=== PATIENT | female | born 1960 | race Caucasian/White ===

== ENCOUNTER → 2022-12-23 10:02 | Outpatient (BNVA) | payer BC, SELFPAY | PROVIDERS: PCP Family Medicine; Visit Provider Nurse Practitioner Family | DX: Z13.89 Encounter for screening for other disorder (principal) ==

== ENCOUNTER 2023-12-25 08:53 | Outpatient (AMB) | payer BC, SELFPAY ==
--- NOTE | 2023-12-25 08:55 | A.OFFVIS_ITS ---
Intake Vital Signs 12/25/23 08:58 Height 5 ft 5 in Weight 199 lb 8 oz BMI 33.2 BP 122/68 Blood Pressure Location Lt brachial Position Sitting Pulse 60 Pulse Source Pulse Oximeter Pulse Oximetry (%) 98 Oxygen Delivery Method Room Air Intake Visit Reasons: 1yr f/u PEARL - LVM w/address Press Operator Carbon Products Required: No Accompanied by: Self / Same As Patient Allergies amoxicillin Adverse Reaction (Intermediate, Verified 12/23/22 10:10) Rash HPI HPI Comments History of Present Illness Details 63 y/o female patient presents for follo w up of PEARL on CPAP. Pt reports she had really bad allergy, could not using CPAP during the winter. Her allergy symptoms usually worse from fall to winter. She started using Flonase, and it helps to reduce her sneezing and drying out. She also gets supplies routinely. Pt states that she feels good, sleeps well and wakes up refreshed when using CPAP. The CPAP compliance and therapy response (09/26/23-12/24/23) reviewed. She is on APAP [id number]. Usages days 37% and average usage hours 7 hours and 30 min. The max pressure is 12 and AHI was 6. [facility] Medical History (Updated 12/23/22 @ 11:41 by Dale Tanner CNP) FH: cholecystectomy Surgical History (Updated 12/23/22 @ 10:11 by Natalie Steward CMA) Previous back surgery Social History (Updated 12/18/22 @ 09:16 by Natalie Steward CMA) Alcohol intake: current Alcohol intake frequency: a few times a month Patient Tobacco Use Status: Former Tobacco user Review of Systems Const All systems reviewed & are unremarkable except as noted in HPI and below ENT Reports Normal hearing present Neuro Reports Normal hearing present Physical Exam Vital Signs: Last Vital Signs Pulse 60 12/25/23 08:58 BP 122/68 12/25/23 08:58 Pulse Ox 98 12/25/23 08:58 Oxygen Delivery Method Room Air 12/25/23 08:58 BMI result Body Mass Index 33.2 Const General: cooperative and comfortable Nutritional Appearance: obese Orientation/consciousness: patient oriented x3 Neck Neck: Yes full ROM and Yes supple Resp Effort & Inspection: normal respiratory effort and able to speak in complete sentences Neuro General: patient oriented x3 Cranial nerves: Yes Bilaterally intact EOM present, Yes Normal facial strength present, Yes Midline tongue present, Yes Symmetric palate elevation present, Yes Normal hearing present, Yes Ability to bilaterally rotate head present and Yes Ability to bilaterally elevate shoulders present Cognition (Neuro): normal cognition Gait exam (Neuro): Normal gait present Motor exam (neuro): 5/5 motor strength present throughout, Pronator motor function not present and no tremor noted Psych Appearance: grossly normal Mental Status: mental status grossly normal Speech and movement: Normal speech and movement present Affect: normal affect Attitude: cooperative Assessment & Plan Assessment & Plan (1) PEARL on CPAP: Code(s): G47.33 - Obstructive sleep apnea (adult) (pediatric); Z99.89 - Dependence on other enabling machines and devices Plan Advised patient to continue to use APAP [id number]. Stressed compliance, use CPAP nightly and more than 4 hours. Wt reduction adivsed. Coding Level of Care Code Est Pt Level 3 (67349) Diagnoses PEARL on CPAP G47.33; Z99.89
[2023-12-25 08:58] VITALS: BP 122/68; PULSE 60; O2SAT 98; BMI 33.2
== END 2023-12-25 09:18 | disposition home or self-care (01) ==
PROVIDERS: Visit Provider Nurse Practitioner Family
DX: G47.33 Obstructive sleep apnea (adult) (pediatric) (principal); Z99.89 Dependence on other enabling machines and devices
CPT/HCPCS: 99213

== ENCOUNTER → 2023-12-25 08:53 | Outpatient (BNVA) | payer BC, SELFPAY | PROVIDERS: Visit Provider Nurse Practitioner Family ==

== ENCOUNTER 2024-12-24 09:38 | Outpatient (AMB) | payer BC, SELFPAY ==
--- NOTE | 2024-12-24 09:40 | MHC.OFFVIS ---
Vital Signs 12/24/24 09:42 Height 5 ft 5 in Weight 187 lb BMI 31.1 BP 126/78 Blood Pressure Location Rt brachial Position Sitting Pulse 66 Pulse Source Pulse Oximeter Pulse Oximetry (%) 97 Oxygen Delivery Method Room Air Intake Visit Reasons: follow up PEARL Intake Note: Patient presents follow up PEARL. compliance 07/09/24 available Allergies amoxicillin Adverse Reaction (Intermediate, Verified 12/24/24 09:43) Rash HPI Comments Details: 63 y/o female patient presents for follow up of PEARL on CPAP. Pt reports she had really bad allergies, sneezing all day long, could not use CPAP during NOV, she is making a wheezing, musical sound, and her small business representative gave her Azithtromycin and Cetirizine and Wixela inhaler. Her allergy symptoms usually progress from fall to winter. She started using Flonase for rhinorrea dries out her nasal passageway and she is not able to use the CPAP. She has been having trouble with [employer], getting supplies and has multiple URIs. She thinks it is the mask, and tubing which keeps her up at night, coughing and choking. 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 Denies RLS, has numbness and tingling in the l. leg due to herniated disc, L5/S1, surgery at [facility]. Cholecystectomy in 2019 Labs with [facility] 2x a year for hypothyroidism. Her mood, diet and memory is normal, anxiety is well managed with paroxetine 20mg PO at bedtime. [facility] Medical History FH: cholecystectomy Surgical History Previous back surgery Social History Alcohol intake: current Alcohol intake frequency: a few times a month Patient Tobacco Use Status: Former Tobacco user Physical Exam Vital Signs: Last Vital Signs Pulse 66 12/24/24 09:42 BP 126/78 12/24/24 09:42 Pulse Ox 97 12/24/24 09:42 Oxygen Delivery Method Room Air 12/24/24 09:42 BMI result Body Mass Index 31.1 Const General: cooperative, no acute distress and tired appearing Orientation/consciousness: patient oriented x3 HEENT Face and sinus: Yes normal facial exam and Yes face symmetric Throat: Yes other (Mallampti score 3 ) Eyes Pupils: Equal, round and reactive pupils present Neck Neck: Yes full ROM Resp Effort & Inspection: normal respiratory effort, able to speak in complete sentences and Actively coughing Neuro General: patient oriented x3 Cranial nerves: Yes CN's II-XII intact bilaterally, Yes Equal, round and reactive pupils present, Yes Normal accommodation reflex present, Yes Bilaterally intact EOM present, Yes Nystagmus not present, Yes Normal facial strength present, Yes Midline tongue present, Yes Ability to bilaterally rotate head present and Yes Ability to bilaterally elevate shoulders present Gait exam (Neuro): Normal gait present Motor exam (neuro): 5/5 motor strength present throughout and Normal motor muscle tone present throughout Deep tendon reflexes (DTR's): Right triceps reflex intensity grade: 2+, Left triceps reflex intensity grade: 2+, Rt Biceps (C5, C6): 2+, Left biceps reflex intensity grade: 2+, Right brachioradialis reflex intensity grade: 2+, Left brachioradialis reflex intensity grade: 2+, Right patellar reflex intensity grade: 2+ and Left patellar reflex intensity grade: 2+ Psych Appearance: grossly normal Thought process: Normal thought process present Thought content: Normal thought content present Results Reviewed Results Reviewed: The CPAP compliance and therapy response (09/26/23-12/24/23) reviewed. She is on APAP [id number]. Usages days 37% and average usage hours 7 hours and 30 min. The max pressure is 12 and AHI was 6. PEARL Compliance Report HST : 04/2024- 07/2024 >4 hrs use 83 days and 92% Avg. 7hrs 55min APAP [id number] Press 0.1-11.7cmH20 EPR 3 AHI 3.8 Assessment & Plan Assessment & Plan (1) Environmental allergies: Code(s): Z91.09 - Other allergy status, other than to drugs and biological substances Category: Medical (2) Rhinorrhea: Code(s): J34.89 - Other specified disorders of nose and nasal sinuses Category: Medical (3) Wheeze clears with coughing: Code(s): R05.9 - Cough, unspecified; R06.2 - Wheezing Category: Medical (4) Asthma: Code(s): J45.909 - Unspecified asthma, uncomplicated Category: Medical Qualifiers: Asthma severity: unspecified severity Asthma persistence: intermittent Asthma complication type: unspecified Qualified Code(s): J45.20 - Mild intermittent asthma, uncomplicated Plan HST re-evaluation for sleep apnea Fatigue f/u with labs from [facility] Numbness and pain L>R Lumbar Radiculopathy L5/S1 Orders: Orders RT home sleep study Today G47.19 - Other hypersomnia Patient Instructions: Sleep Hygiene provided: set a scheduled bedtime and wake time to help regulate the circadian rhythm and balance the release of pituitary hormones. Sleep in a dark room, temperatures below 68 degrees, and no devices n bed. Limit caffeinated products 6 hours prior to bed, and limit fluids 2-4 hours prior to bed. Gentle night yoga, diffusing essential oils, and playing soft music can be relaxing. - mask and supply will be ordered once sleep study is completed. - Labs requested from [facility] - Surgical note for Lumbar Radiculopathy. Coding Level of Care Code Est Pt Level 4 (27821) Diagnoses Environmental allergies Z91.09 Rhinorrhea J34.89 Wheeze clears with coughing R05.9; R06.2 Intermittent asthma, unspecified asthma severity, unspecified whether complicated J45.20 Asthma severity: unspecified severity Asthma persistence: intermittent Asthma complication type: unspecified Time Spent (min) 30 Comment Evaluation of sleep
[2024-12-24 09:42] VITALS: BP 126/78; PULSE 66; O2SAT 97; BMI 31.1
== END 2024-12-24 10:25 | disposition home or self-care (01) ==
LOC: HO.HSMS 09:39
PROVIDERS: PCP Family Medicine; Visit Provider Physician Assistant Medical
DX: J30.2 Other seasonal allergic rhinitis (principal); J34.89 Other specified disorders of nose and nasal sinuses; R05.9 Cough, unspecified; R06.2 Wheezing; J45.20 Mild intermittent asthma, uncomplicated
CPT/HCPCS: 99214

== ENCOUNTER → 2024-12-24 09:38 | Outpatient (BNVA) | payer BC, SELFPAY | PROVIDERS: PCP Family Medicine; Visit Provider Physician Assistant Medical ==

== ENCOUNTER → 2025-02-21 08:51 | Outpatient (REF) | payer BC, SELFPAY ==
--- OUTSIDE RECORDS SUMMARY | 2025-02-21 08:59 | XMS_ITS | Encounter Summary ---
Author Organization [facility] Address [address] [facility] [facility] [facility] [address] [place] [address] Phone Care Team Providers Care Product Control And Logistics Analyst Name Role Phone Jaime Riley DO Primary Care Provider [phone] Encounter Details Date Type Department Care Team (Late st Contact Info) Description 04/04/2021 Orders Only [facility] [address] [facility] [address] [place] [address] Provider, MD Inder [address] [place], [place] [id number] Social History Tobacco Use Types Packs/Day Years Used Date Smoking Tobacco: Never Alcohol Use Standard Drinks/Week Comments Yes 0 (1 standard drink = 0.6 oz pure alcohol) Alcoholic Drinks/day: Occasional social drink Comments Unknown Sex and Gender Information Value Date Recorded Sex Assigned at Not on file Legal Sex Female 5:12 PM EST Gender Identity Not on file Sexual Orientation Not on file documented as of this encounter Plan of Treatment Not on file documented as of this encounter Procedures Procedure Name Priority Date/Time Associated Diagnosis Comments EXT RESULT ENTRY Routine 01/04/2021 documented in this encounter Results * EXT RESULT ENTRY (01/04/2021) Historical Provider LAB BLOOD ORDERABLES Yolanda l Result documented in this encounter Visit Diagnoses Not on filedocumented in this encounter Care Teams Product Control And Logistics Analyst Relationship Specialty Start Date End Date Jaime Riley DO [address] [place] [address] PCP - General 10/16/20 documented as of this encounter
--- OUTSIDE RECORDS SUMMARY | 2025-02-21 08:59 | XMS_ITS | Clinical Summary ---
Author Organization [facility] Address [address] [address] Care Team Providers Care Highway Engineering Technician Name Role Phone Riley, Gary Juanita GREGG Primary Care Provider [phone] Allergies Active Allergy Reactions Criticality Noted Date Comments Amoxicillin Other (see comments) 04/05/2021 Medications levothyroxine (SYNTHROID, LEVOTHROID) 125 MCG tablet Take 125 mcg by mouth 1 (one) time each day 03/08/2021 Active PARoxetine (PAXIL) 20 MG tablet Take 20 mg by mouth 1 (one) time each day 02/06/2021 Active lisinopril 10 MG tablet TAKE 1 TABLET BY MOUTH ONCE DAILY 30 tablet 11 11/11/2022 Active amLODIPine (NORVASC) 10 MG tablet TAKE 1 TABLET BY MOUTH EVERY MORNING 30 tablet 11 02/26/2023 Active Active Problems Problem Noted Date Diagnosed Date 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 06/13/2022 Anemia 06/13/2022 Essential (primary) hypertension 04/05/2021 Chronic kidney disease, Stage I 04/05/2021 Hypothyroidism 10/15/2020 Resolved Problems Problem Noted Date Diagnosed Date Resolved Date Polyp of gallbladder 06/13/2022 022 Macrocytosis 06/13/2022 06/13/2022 Inflammation of sacroiliac joint 06/13/2022 06/13/2022 Graves' disease 06/13/2022 06/13/2022 Diverticular disease 06/13/2022 022 Anxiety 10/15/2020 06/13/2022 Family History Medical History Relation Comments Dementia Mother Heart disease Mother A-Fib Hypertension Mother Hypertension Sibling sister Relation Status Comments Father Alive Mother Alive Sibling Social History Tobacco Use Types Packs/Day Years Used Date Smoking Tobacco: Never Smokeless Tobacco: Never Tobacco Cessation:Counseling Given: Not Answered Alcohol Use Standard Drinks/Week Comments Yes 0 (1 standard drink = 0.6 oz pure alcohol) Alcoholic Drinks/day: Occasional social drink Comments Unknown Sex and Gender Information Value Date Recorded Sex Assigned at Not on file Legal Sex Female 5:12 PM EST Gender Identity Not on file Sexual Orientation Not on file Last Filed Vital Signs Vital Sign Reading Time Taken Comments Blood Pressure 136/80 06/17/2022 4:35 PM EDT Pulse 72 06/17/2022 4:35 PM EDT Temperature - - Respiratory Rate - - Oxygen Saturation 97% 06/17/2022 4:35 PM EDT Inhaled Oxygen Concentration - - Weight 92.1 kg (203 lb) 06/17/2022 4:35 PM EDT Height 165.1 cm (5' 5 ) 04/05/2021 3:08 PM EDT Body Mass Index 33.78 04/05/2021 3:08 PM EDT Plan of Treatment Health Maintenance Due Date Last Done Comments Breast Cancer Screening 1961 Pneumococcal Vaccine: 50+ Ye ars (1 of 2 - PCV) 1980 Colorectal Cancer Screening: Annual FOBT 2010 Colorectal Cancer Screening: Colonoscopy 2010 Colorectal Cancer Screening: Sigmoidoscopy 2010 Influenza Vaccine (Season Ended) 2025 Hepatitis B Vaccine Aged Out No longe r eligible based on patient's age to complete this topic Insurance [facility] Care Teams Highway Engineering Technician Relationship Specialty Start Date End Date Jaime Riley DO [address] [place] [address] PCP - General 10/16/20
== END ==
LOC: HO.SL 08:51
PROVIDERS: PCP Family Medicine; Visit Provider Physician Assistant Medical
DX: G47.19 Other hypersomnia (principal)
CPT/HCPCS: 95806

== ENCOUNTER → 2025-02-21 09:06 | Outpatient (BNV) | payer BC, SELFPAY | PROVIDERS: PCP Family Medicine; Visit Provider Psychiatry & Neurology Neurology | DX: R06.83 Snoring (principal) | CPT/HCPCS: 95806 ==

== ENCOUNTER 2025-03-24 10:35 | Outpatient (AMB) | payer BC, SELFPAY ==
[2025-03-24 10:38] VITALS: BP 126/88; PULSE 70; O2SAT 96; BMI 31.8
--- NOTE | 2025-03-24 10:38 | MHC.OFFVIS ---
Vital Signs 03/24/25 10:38 Height 5 ft 5 in Weight 191 lb 2 oz BMI 31.8 BP 126/88 Blood Pressure Location Lt brachial Position Sitting Pulse 70 Pulse Source Pulse Oximeter Pulse Oximetry (%) 96 Oxygen Delivery Method Room Air Intake Visit Reasons: 3 mnts f/u Intake Note: Patient presents follow up Sleep. HST done 02/22 in chart(AHI-3, JEFF-85%). Allergies amoxicillin Adverse Reaction (Intermediate, Verified 03/24/25 10:42) Rash HPI Comments Details: 64 y/o female patient presents for follow up of PEARL on CPAP. February 2025 and AHI 3 and Oxygen desaturation Jeff 85%, [facility] and pay out of pocket to continue her cpap use and compliance. She has visited acute care twice this month for URI. Pt reports she has chronic allergies, sneezing, rhinorrhea, could not use CPAP during NOV. She makes a wheezing, musical sound when sleeping and wakes up coughing. Her Ornamental Iron Erector rx Azithromycin and Ceterizine, along with Wixela prn. Her allergy symptoms usually progress from fall to winter then decrease in the spring. Now she has congestion of the l. nare as she lays on her r. side. She tried flonase, and saline sprays, soledad pots, however still unable to get a full breath of air in. She continues to wake up at night several times, uses a fan and opens windows for air. She has been having trouble with her sleep company, and having to use her mask and tubing after bronchitis, twice this month. She cares for her ill mother who has Alzheimers and is now in a nursing facility. She deneis RLS, however has some numbness and tingling in l. leg due to h/o surgery for herniated disc at L5/S1 at [facility]. She continues to have low back pain and radiating electric shock down the l. leg. She has + h/o graves disease and ablation. Her mood tends to be very anxious and she gets panic attacks managed with paroxetine 20mg PO at bedtime. Her diet and memory is stable. [facility] Medical History HTN (hypertension) FH: cholecystectomy Surgical History Previous back surgery Social History Alcohol intake: current Alcohol intake frequency: a few times a month Patient Tobacco Use Status: Former Tobacco user Physical Exam Vital Signs: Last Vital Signs Pulse 70 03/24/25 10:38 BP 126/88 03/24/25 10:38 Pulse Ox 96 03/24/25 10:38 Oxygen Delivery Method Room Air 03/24/25 10:38 BMI result Body Mass Index 31.8 Const General: cooperative, comfortable and no acute distress Orientation/consciousness: patient oriented x3 HEENT Face and sinus: Yes normal facial exam and Yes face symmetric Throat: Yes other (Mallampti score 3 ) Neck Neck: Yes full ROM Resp Effort & Inspection: able to speak in complete sentences and Actively coughing Neuro General: patient oriented x3 Cranial nerves: Yes CN's II-XII intact bilaterally, Yes Normal accommodation reflex present, Yes Bilaterally intact EOM present, Yes Nystagmus not present, Yes Normal facial strength present, Yes Midline tongue present, Yes Ability to bilaterally rotate head present and Yes Ability to bilaterally elevate shoulders present Gait exam (Neuro): Normal gait present Motor exam (neuro): 5/5 motor strength present throughout and Normal motor muscle tone present throughout Psych Appearance: grossly normal Thought process: Normal thought process present Thought content: Normal thought content present Results Reviewed Results Reviewed: labs 08/2024 [facility] Assessment & Plan Assessment & Plan (1) Excessive daytime sleepiness: Comment: AHI is 3 and O2 Jeff 85%, +fh of alzheimers mom. Code(s): G47.19 - Other hypersomnia Category: Medical (2) Low back pain associated with a spinal disorder other than radiculopathy or spinal stenosis: Comment: PT- sciatica L. sided Code(s): M54.50 - Low back pain, unspecified Category: Medical (3) Wheeze clears with coughing: Comment: claritin otc Code(s): R05.9 - Cough, unspecified; R06.2 - Wheezing Category: Medical (4) History of nasal congestion: Comment: polyp ? Code(s): Z87.898 - Personal history of other specified conditions Category: Medical Plan PEARL PSG cw AHI 3 and O2 Nadirs to 85%, patient continues to be unable to sleep at night due to chronic allergies, and rhinorrhea, nasal congestion with multiple URI. She would like to continue on CPAP therapy +fh of alzheimers dementia. ENT polyps? Deviated septum? Nasal congestion Fatigue f/u with labs from [facility] PT for Numbness and pain L>R Lumbar Radiculopathy L5/S1 Orders: Orders PT Evaluation and Treatment Today M54.50 - Low back pain, unspecified Referrals Ear/Nose/Throat Referral Z87.898 - Personal history of other specified conditions Patient Instructions: Sleep Hygiene provided: set a scheduled bedtime and wake time to help regulate the circadian rhythm and balance the release of pituitary hormones. Sleep in a dark room, temperatures below 68 degrees, and no devices n bed. Limit caffeinated products 6 hours prior to bed, and limit fluids 2-4 hours prior to bed. Gentle night yoga, diffusing essential oils, and playing soft music can be relaxing. Coding Level of Care Code Est Pt Level 4 (00942) Diagnoses Excessive daytime sleepiness G47.19 Low back pain associated with a spinal disorder other than radiculopathy or spinal stenosis M54.50 Wheeze clears with coughing R05.9; R06.2 History of nasal congestion Z87.898 Time Spent (min) 25
--- OUTSIDE RECORDS SUMMARY | 2025-03-24 12:04 | XMS_ITS | Encounter Summary ---
Author Organization [facility] Address [address] [facility] [facility] [address] [place] [address] Phone Care Team Providers Care Productivity Engineer Name Role Phone Jaime Riley DO Primary Care Provider [phone] Encounter Details Date Type Department Care Team (Late st Contact Info) Description 04/04/2021 Orders Only [facility] [address] [facility] [address] [place] [address] Provider, Inder, Social History Tobacco Use Types Packs/Day Years [...] encounter Results * EXT RESULT ENTRY (01/04/2021) us Historical Provider LAB BLOOD ORDERABLES Yolanda l Result documented in this encounter Visit Diagnoses Not on filedocumented in this encounter Care Teams Productivity Engineer Relationship Specialty Start Date End Date Jaime Riley DO [address] [place] [address] PCP - General 10/16/20 documented as of this encounter
== END 2025-03-24 11:29 | disposition home or self-care (01) ==
LOC: HO.HSMS 10:35
PROVIDERS: PCP Family Medicine; Visit Provider Physician Assistant Medical
DX: G47.19 Other hypersomnia (principal); M54.50 Low back pain, unspecified; R05.9 Cough, unspecified; R06.2 Wheezing; Z87.898 Personal history of other specified conditions
CPT/HCPCS: 99214

== ENCOUNTER → 2025-03-24 10:35 | Outpatient (BNVA) | payer BC, SELFPAY | PROVIDERS: PCP Family Medicine; Visit Provider Physician Assistant Medical ==